=== PATIENT | female | born 1995 | race Caucasian/White ===

== ENCOUNTER 2021-03-08 19:17 | Observation (INO) | payer BC ==
[2021-03-08 20:48] LABS: COLLECTION METHOD CLEAN CATCH
[2021-03-08 20:53] LABS: BASO # 0.1 K/mm3 (0.0-0.2); BASO % 0.3 % (0.0-2.0); EOS % 0.2 % (0-4.0); GRAN # 17.8 K/mm3 (1.4-6.5); HEMOGLOBIN 14.3 g/dl (12.5-16.0); LYMPH # 1.3 K/mm3 (1.2-3.4); LYMPH % 6.5 % (20.0-51.0); MEAN CELL VOLUME 86 fl (80.0-100.0); MEAN CORPUSCULAR HEMOGLOBIN 29 pg (27.0-31.0); MEAN CORPUSCULAR HGB CONC 34 g/dl (33.0-37.0); MEAN PLATELET VOLUME 10.2 fl (7.4-10.4); MONO # 0.7 K/mm3 (0.1-0.6); MONO % 3.6 % (1.7-9.3); PLATELET COUNT 319 K/mm3 (130-400); RED BLOOD COUNT 4.88 M/mm3 (4.10-5.30)
[2021-03-08 21:01] LABS: MUCOUS Present (NOT PRESENT); PH 5 (5-8); SQUAMOUS EPITHELIAL 0-2 /hpf (0-10); URINE APPEARANCE Hazy (CLEAR/HAZY); URINE BACTERIA None Seen (NONE SEEN); URINE BILIRUBIN Negative (NEGATIVE); URINE BLOOD Negative (NEGATIVE); URINE COLOR Yellow (YELLOW); URINE GLUCOSE Negative (NEGATIVE); URINE KETONE 2+ (NEGATIVE); URINE LEUKOCYTE ESTERASE Negative (NEGATIVE); URINE NITRATE Negative (NEGATIVE); URINE PROTEIN(semi-quant) Negative (NEGATIVE); URINE RBC 0-2 /hpf (0-2)
[2021-03-08 21:15] LABS: ALBUMIN 4.1 gm/dL (3.5-5.0); BILIRUBIN,TOTAL 0.5 mg/dL (0.2-1.2); C-REACTIVE PROTEIN 0.43 mg/dL (0.00-0.50); CALCIUM 9.2 mg/dL (8.4-10.2); CREATININE, serum 0.72 mg/dL (0.57-1.11); POTASSIUM 3.6 mmol/L (3.5-4.5); TOTAL PROTEIN 7.6 gm/dL (6.2-8.1)
[2021-03-08 22:36] VITALS: BP 120/60; PULSE 88; TEMP 98.8
--- NOTE | 2021-03-08 22:36 | NUR ---
PT ARRIVED ON UNIT AT 2215. ADMIT ASSESSMENT DONE, VITALS, FLUIDS STARTED.
[2021-03-09 02:45] VITALS: BP 114/63; PULSE 73; TEMP 98.4
[2021-03-09 06:11] LABS: BASO % 0.2 % (0.0-2.0); EOS % 0.2 % (0-4.0); GRAN # 9.7 K/mm3 (1.4-6.5); GRAN % 77.9 % (42.2-75.2); HEMATOCRIT 37.3 % (37.0-47.0); HEMOGLOBIN 12.9 g/dl (12.5-16.0); MEAN CELL VOLUME 86 fl (80.0-100.0); MEAN CORPUSCULAR HEMOGLOBIN 30 pg (27.0-31.0); MEAN CORPUSCULAR HGB CONC 35 g/dl (33.0-37.0); MEAN PLATELET VOLUME 10.4 fl (7.4-10.4); MONO # 0.7 K/mm3 (0.1-0.6); MONO % 5.4 % (1.7-9.3); PLATELET COUNT 257 K/mm3 (130-400); RED BLOOD COUNT 4.36 M/mm3 (4.10-5.30); REDCELL DISTRIBUTION WIDTH-CV 12.2 % (11.5-14.5)
[2021-03-09 07:30] VITALS: BP 127/65; PULSE 100; TEMP 98.5
[2021-03-09] MEDS ORDERED: ZOFRAN ODT4 MG PO (09:35)
[2021-03-09 12:00] VITALS: BP 120/62; PULSE 95; TEMP 98.1
--- NOTE | 2021-03-09 12:35 | NUR ---
PT REPORTS SIGNIFANT RELIEF IN NAUSEA FOLLOW PO ZOFRAN ODT. ABLE TO KEEP JARA,EGGS AND TOAST DOWN. NOTIFIED, SEE PHYS.NOTIFICATION. VITAL SIGNS STABLE. TORB PT MAY DC HOME.
--- NOTE | 2021-03-09 12:45 | NUR ---
ALL DC PAPERWORK REVIEWED AND UNDERSTOOD. PT DENIES FURTHER QUESTIONS OR CONCERNS. VITAL SIGNS STABLE. DENIES NAUSEA AT THIS TIME. IV TO RT FA REMOVED PRIOR TO DC. PT AMBULATORY FROM UNIT WITH MOTHER SUPPORT PERSON PROVIDING TRANSPORTATION HOME.
== END 2021-03-09 12:45 | disposition home or self-care (01) ==
LOC: COL.ER 19:17 → OB 21:38
PROVIDERS: Nurse Practitioner Primary Care; ADMIT Obstetrics & Gynecology
DX: O26.891 Other specified pregnancy related conditions, first trimester (principal); R10.31 Right lower quadrant pain; O21.8 Other vomiting complicating pregnancy; Z3A.09 9 weeks gestation of pregnancy
CPT/HCPCS: G0378; J2550; J7030; J7120